=== PATIENT | male | born 1990 | race African-American/Black ===

== ENCOUNTER 2019-11-15 21:18 | Observation (INO) | payer OTHER ==
[~2019-11-15] VITALS: Ht 167.6 cm; Wt 93.3 kg
[2019-11-15] MEDS ORDERED: KETOROLAC TROMETHAMINE 60 MG/2 ML VIAL ONE (21:56)
[2019-11-15 22:51] LABS: BASOPHILS % (AUTO) 0.5 % (0.0-5.0); EOSINOPHILS % (AUTO) 0.7 % (0.0-8.0); HEMATOCRIT 45.6 % (42-54); LYMPHOCYTES % (AUTO) 26.8 % (21.0-51.0); MEAN CORPUSCULAR HGB CONC 33.3 g/dL (32.0-36.0); MEAN CORPUSCULAR VOLUME 89.9 fL (79-99); MONOCYTES % (AUTO) 16.5 % (3.0-13.0); NEUTROPHILS % (AUTO) 55.3 % (40.0-77.0); PLATELET COUNT (AUTO) 185 K/uL (130-400); RED BLOOD CELL COUNT(AUTO) 5.07 MIL/uL (4.50-6.20); RED CELL DISTRIBUTION WIDTH 12.5 % (11.0-15.5); WHITE BLOOD COUNT (AUTO) 8.5 K/uL (4.8-10.8)
[2019-11-15 23:01] LABS: CREATININE 1.2 mg/dL (0.5-1.5); POTASSIUM 3.8 mmol/L (3.5-5.1)
[2019-11-15 23:05] LABS: ALBUMIN 3.7 g/dL (3.5-5.0); BILIRUBIN,TOTAL 0.7 mg/dL (0.2-1.0); TOTAL PROTEIN, SERUM 7.9 g/dL (6.0-8.3)
[2019-11-15] MEDS ORDERED: IOHEXOL-350 75 ML VIAL IV ONE (23:07)
[2019-11-16] MEDS ORDERED: ACETAMINOPHEN 325 MG TAB PO PRN ×2 (00:30)
[2019-11-16] MEDS ORDERED: MORPHINE SULFATE 2 MG/ML 1ML SYG IV PRN (00:30)
[2019-11-16] MEDS ORDERED: LACTULOSE 20 GM/30 ML UDCUP PO PRN (00:30)
[2019-11-16] MEDS ORDERED: FAMOTIDINE 20MG TAB 20 MG TAB ONE ×3 (00:51→20:15)
[2019-11-16] MEDS ORDERED: ENOXAPARIN SODIUM 100 MG/1 ML SQ ONE (00:51)
[2019-11-16 01:05] LABS: INR 0.97 (0.85-1.15); PARTIAL THROMBOPLASTIN TIME 25.9 SEC (26.3-35.5); PROTHROMBIN TIME 10.2 SEC (9.6-11.6)
[2019-11-16 04:30] LABS: BASOPHILS % (AUTO) 0.5 % (0.0-5.0); EOSINOPHILS % (AUTO) 0.5 % (0.0-8.0); HEMATOCRIT 43.6 % (42-54); LYMPHOCYTES % (AUTO) 21.9 % (21.0-51.0); MEAN CORPUSCULAR HEMOGLOBIN 29.7 pg (27.0-33.0); MEAN CORPUSCULAR HGB CONC 32.8 g/dL (32.0-36.0); MEAN CORPUSCULAR VOLUME 90.5 fL (79-99); MONOCYTES % (AUTO) 15.8 % (3.0-13.0); PLATELET COUNT (AUTO) 173 K/uL (130-400); RED BLOOD CELL COUNT(AUTO) 4.82 MIL/uL (4.50-6.20); RED CELL DISTRIBUTION WIDTH 12.4 % (11.0-15.5); WHITE BLOOD COUNT (AUTO) 7.9 K/uL (4.8-10.8)
[2019-11-16 04:43] LABS: CREATININE 1.1 mg/dL (0.5-1.5); POTASSIUM 4.2 mmol/L (3.5-5.1)
[2019-11-16] MEDS ORDERED: MORPHINE SULFATE 2 MG/ML 1ML SYG ONE ×2 (05:03→19:09)
[2019-11-16] MEDS ORDERED: HYDROMORPHONE 4MG/ML 1ML VIAL IVP PRN (12:15)
--- NOTE | 2019-11-16 17:02 | NUR ---
INITIAL SW met with patient. Patient lives with mother, Silvia Coates. No home services or DME. Patient is able to complete ADL's independently and drives. He is employed real time analyst. [facility] Pharmacy is [facility] located on [address] [place] [address]. DCP is home. Addendum: 11/16/19 at 1704 by JULIO CESAR MADRIGAL SS Amended: Links added.
[2019-11-16 20:39] VITALS: BP 130/73
[2019-11-16 20:40] LABS: AMPHET/METH SCREEN,URINE NEGATIVE (NEGATIVE); BARBITURATE SCREEN, URINE NEGATIVE (NEGATIVE); BENZODIAZEPINES SCREEN,URINE NEGATIVE (NEGATIVE); CANNABINOID SCREEN,URINE NEGATIVE (NEGATIVE); COCAINE SCREEN,URINE NEGATIVE (NEGATIVE); OPIATE SCREEN,URINE POSITIVE (NEGATIVE); PHENCYCLIDINE SCREEN,URINE NEGATIVE (NEGATIVE)
[2019-11-16] MEDS: FAMOTIDINE 20MG TAB 20 MG TAB PO SCH ×2 (20:43→20:44)
[2019-11-16] MEDS: ENOXAPARIN SODIUM 100 MG/1 ML SQ SCH ×2 (20:43→22:38)
[2019-11-16] MEDS: HYDROMORPHONE 1 MG/1 ML AMP IVP PRN (22:11)
[2019-11-16] MEDS: ONDANSETRON HCL 4 MG/2 ML VIAL IV PRN (22:11)
[2019-11-17] MEDS: HYDROMORPHONE 1 MG/1 ML AMP IVP PRN ×3 (03:26→08:16)
[2019-11-17] MEDS: ONDANSETRON HCL 4 MG/2 ML VIAL IV PRN ×2 (03:30→07:34)
[2019-11-17 04:30] VITALS: BP 135/82
[2019-11-17 07:00] VITALS: BP 132/78
[2019-11-17] MEDS: FAMOTIDINE 20MG TAB 20 MG TAB PO SCH (08:18)
[2019-11-17] MEDS ORDERED: APIXABAN 5 MG TABLET PO SCH (09:00)
[2019-11-17] MEDS ORDERED: IBUP-2088 PO (10:56)
[2019-11-17] MEDS ORDERED: APIX5TAB PO ×2 (10:56)
[2019-11-17 11:00] VITALS: BP 139/76
[2019-11-17] MEDS ORDERED: FENTANYL 25 MCG/HR PATCH TD SCH (11:15)
[2019-11-17 15:00] VITALS: BP 114/74
--- NOTE | 2019-11-17 17:35 | NUR ---
DISCHARGE VERBAL & WRITTEN DISCHARGE INSTRUCTIONS REVIEWED & GIVEN TO PT. QUESTIONS ENCOURAGED & CLARIFIED. PROPER CARE & MGT OF PULMONARY EMBOLISM REVIEWED. NEW PRESCRIBED MEDICATIONS REVIEWED. PT INFORMED PRESCRIPTION TRANSMITTED TO PHARMACY IN FILE. PT TO F/U W/PCP IN 3-5 DAYS. TELE IVÁN REMOVED. IV DISCONTINUED. PT TO GATHER PERSONAL BELONGINGS. WILL NOTIFY STAFF WHEN READY TO BE TAKEN TO PRIVATE VEHICLE.
--- NOTE | 2019-11-17 18:00 | NUR ---
DISCHARGE PT TAKEN TO PRIVATE VEHICLE VIA WC BY Lola DEVINE PCP, ACCOMPANIED BY FRIEND. NO DISTRESS NOTED.
== END 2019-11-17 18:00 | disposition home or self-care (01) ==
LOC: EDH 21:18 → EDHIP 11-16 00:28 → 2AH 11-16 20:30
PROVIDERS: ADMIT Internal Medicine; ATTEND Internal Medicine
DX: I26.99 Other pulmonary embolism without acute cor pulmonale (principal); I51.7 Cardiomegaly; K76.0 Fatty (change of) liver, not elsewhere classified; J90 Pleural effusion, not elsewhere classified; Z86.718 Personal history of other venous thrombosis and embolism; Z79.01 Long term (current) use of anticoagulants; Z79.899 Other long term (current) drug therapy
CPT/HCPCS: 36415 ×2; 71046; 71275; 80048; 80053; 80305; 83880; 84484; 85025 ×2; 85610; 85730; 87804 ×2; 93005; 93306; 93970; 96372; 96374; 96375; 96376; 99285; G0378 ×41; J1170 ×3; J1650 ×2; J1885; J2405 ×2; Q9967

== ENCOUNTER 2020-08-05 22:10 | Emergency (ER) | payer OTHER ==
[~2020-08-05 22:10] MED LIST: APIX5TAB PO; IBUP-2088 PO
[2020-08-05 22:30] LABS: BASOPHILS % (AUTO) 0.6 % (0.0-5.0); EOSINOPHILS % (AUTO) 0.8 % (0.0-8.0); LYMPHOCYTES % (AUTO) 52.1 % (21.0-51.0); MEAN CORPUSCULAR HEMOGLOBIN 30.4 pg (27.0-33.0); MEAN CORPUSCULAR HGB CONC 33.2 g/dL (32.0-36.0); MEAN CORPUSCULAR VOLUME 91.6 fL (79-99); MONOCYTES % (AUTO) 13.2 % (3.0-13.0); PLATELET COUNT (AUTO) 244 K/uL (130-400); RED BLOOD CELL COUNT(AUTO) 5.13 MIL/uL (4.50-6.20); RED CELL DISTRIBUTION WIDTH 12.2 % (11.0-15.5); WHITE BLOOD COUNT (AUTO) 6.3 K/uL (4.8-10.8)
[2020-08-05 22:33] LABS: CREATININE 1.2 mg/dL (0.5-1.5); POTASSIUM 3.4 mmol/L (3.5-5.1)
[2020-08-05 22:38] LABS: ALBUMIN 3.9 g/dL (3.5-5.0); BILIRUBIN,TOTAL 0.2 mg/dL (0.2-1.0); TOTAL PROTEIN, SERUM 8.1 g/dL (6.0-8.3)
[2020-08-05 22:42] LABS: INR 0.95 (0.85-1.15); PROTHROMBIN TIME 10.3 SEC (9.6-11.6)
[2020-08-05 22:51] LABS: PARTIAL THROMBOPLASTIN TIME 113.6 SEC (26.3-35.5)
[2020-08-05] MEDS ORDERED: IOHEXOL-350 75 ML VIAL IV ONE (22:58)
[2020-08-05 23:25] LABS: RAPID GROUP A STREP NEGATIVE (NEGATIVE)
== END 2020-08-05 23:55 | disposition home or self-care (01) ==
LOC: EDH 22:10
DX: R07.89 Other chest pain (principal); R06.02 Shortness of breath; F41.1 Generalized anxiety disorder; Z20.828 Contact with and (suspected) exposure to other viral communicable diseases; Z88.6 Allergy status to analgesic agent; Z79.899 Other long term (current) drug therapy
CPT/HCPCS: 36415; 71045; 71275; 80053; 82550; 84484; 85025; 85378; 85610; 85730; 86140; 87426; 87804 ×2; 87880; 93005; 99285; Q9967